=== PATIENT | female | born 1950 | race American Indian/Alaskan Native ===

== ENCOUNTER 2016-06-09 11:29 | Day surgery (SDC) | payer MEDICARE ==
[~2016-06-09 11:29] MED LIST: IOPIDINE OD ONE; MYDRIACYL 1% OD ONE; NEOFRIN OD ONE
[2016-06-09] MEDS ORDERED: IOPIDINE OD ONE (12:50)
[2016-06-09] MEDS ORDERED: MYDRIACYL 1% OD ONE (12:50)
[2016-06-09] MEDS ORDERED: NEOFRIN OD ONE (12:50)
[2016-06-09 12:59] VITALS: BP 126/77
== END 2016-06-09 11:30 | disposition home or self-care (01) ==
LOC: OR 11:29
PROVIDERS: ATTEND Specialist
DX: H26.491 Other secondary cataract, right eye (principal); E11.36 Type 2 diabetes mellitus with diabetic cataract; E78.00 Pure hypercholesterolemia, unspecified; I25.2 Old myocardial infarction; I11.0 Hypertensive heart disease with heart failure; I50.9 Heart failure, unspecified; J44.9 Chronic obstructive pulmonary disease, unspecified; E03.9 Hypothyroidism, unspecified; Z95.5 Presence of coronary angioplasty implant and graft; Z95.0 Presence of cardiac pacemaker; K21.9 Gastro-esophageal reflux disease without esophagitis; Z87.440 Personal history of urinary (tract) infections; Z90.710 Acquired absence of both cervix and uterus; Z98.890 Other specified postprocedural states
CPT/HCPCS: 82962